=== PATIENT | female | born 1995 | race Caucasian/White ===

== ENCOUNTER → 2016-07-18 | Outpatient (CLI) | payer BC, OTHER ==
[~2016-07-18] MED LIST: SULF800T23 PO
== END | disposition home or self-care (01) ==
LOC: C.PAPS 13:57
PROVIDERS: ATTEND Physician Assistant
DX: Z01.419 Encounter for gynecological examination (general) (routine) without abnormal findings (principal)

== ENCOUNTER → 2016-07-18 | Outpatient (CLI) | payer OTHER ==
[2016-07-20 00:49] LABS: CHLAMYDIA TRACH RNA*** NOT DETECTED (NOT DETECTED); GC (NEIS GONORRHOEAE)RNA** NOT DETECTED (NOT DETECTED)
== END | disposition home or self-care (01) ==
LOC: C.LAB1850 09:03
PROVIDERS: ATTEND Obstetrics & Gynecology
DX: Z30.9 Encounter for contraceptive management, unspecified (principal)

== ENCOUNTER 2019-01-21 13:24 | Inpatient (IN) ==
[2019-01-21] MEDS ORDERED: OXYTOCIN 30 UNITS/500 ML BAG IV PRN (13:39)
--- NOTE | 2019-01-21 13:41 | History & Physical Report ---
Date of Service January 21, 2019 labor. 3cm, was 1cm earlier this am. GBS neg Assessment & Plan (1) Normal labor: History of Present Illness Primary Care Provider: NO PCP Allergies Allergy/AdvReac Type Severity Reaction Status Date / Time PCN Allergy Intermediate hives Uncoded 01/21/19 13:31 Home Medications Home Medications Medication Instructions Recorded Confirmed Type 1 tab PO DAILY 12/16/18 01/21/19 History vitamin,calcium,bjttusfk-lrxb-gbweq acid tablet Patient History Medical History Oligomenorrhea Surgical History History of oral surgery Social History Preferred Language: Arabic Communication Ability: Effective It Operations Analyst Required: No Beliefs That Will Affect Care: None marital status: Current Living Situation: Spouse Feels Safe at Home: Yes Smoking Status: Never smoker Hx Alcohol Use: No Hx Substance Use: No Physical Exam Constitutional: WD/WN, vitals as above Respiratory: normal respiratory effort, lungs clear to auscultation Cardiovascular: RRR, no murmur, no edema Genitourinary: Manual OB Exam: + cervical dilation (3) 3 cm, + cervical effacement 70% and + station -1 Results & Data Vital Signs (Past 12 Hours) Vital Signs Temp Pulse Resp BP 01/21/19 13:29 93 H 137/81 01/21/19 13:28 98.2 F 22
[2019-01-21] MEDS: LACTATED RINGER'S 1,000 ML IV PRN ×2 (14:00→17:34)
[2019-01-21] MEDS ORDERED: BUPIVACAINE 0.25% 30 ML VIAL ONE (14:02)
[2019-01-21] MEDS ORDERED: ePHEDrine sulfate 50 MG/ML AMP ONE (14:02)
[2019-01-21] MEDS ORDERED: fentaNYL citrate 100 MCG/2 ML VIAL ONE (14:03)
[2019-01-21] MEDS ORDERED: fentaNYL 2MCG/ML ROPIV 1.25MG/ML 100 ML BAG EPI ONE (14:03)
[2019-01-21 14:09] LABS: Hematocrit (blood only) 37.6 % (37-47); Hemoglobin 13.3 g/dL (12.0-16.0); Mean Corpuscular Hemoglobin 32.4 pg (25-34); Mean Corpuscular Volume 91.7 fL (80-100); Mean Platelet Volume 9.5 fL (7.4-10.4); Platelet Count 181 K/uL (130-400); RDW Coefficient of Variation 12.6 % (11.5-14.5); RDW Standard Deviation 42.4 fL (36.4-46.3); White Blood Count 12.94 K/uL (4.8-10.8)
[2019-01-21 14:22] LABS: Mean Corpuscular Hgb Conc 35.4 g/dL (32-36)
--- NOTE | 2019-01-21 14:22 | Anesthesiology Consultation ---
Date of Service January 21, 2019 Assessment & Plan Chart Review Chart Review: Acceptable Risk for Surgery, Patient NOT seen in Pre Admission Testing and Acceptable Risk for Labor Epidural Consults Requested none ASA ASA2 Proposed Anesthesia Anesthesia Type: Labor Epidural Risk / Benefits Reviewed With: PT / POA / Parent / Guardian, Accepts Plan and Informed Consent Obtained History Height/Weight Height: 5 ft 8 in Weight: 102.965 kg Allergies Allergy/AdvReac Type Severity Reaction Status Date / Time PCN Allergy Intermediate hives Uncoded 01/21/19 13:31 Medications Home Medications Medication Instructions Recorded Confirmed Last Taken 1 tab PO DAILY 12/16/18 01/21/19 01/20/19 21:00 vitamin,calcium,wzeihjqf-kpiy-vpzak acid tablet Active Medications Generic Name Dose Route Start Last Admin Trade Name Freq PRN Reason Stop Dose Admin Lactated Ringer's 1,000 mls @ 125 mls/hr 01/21/19 13:39 01/21/19 14:00 Lr IV 01/23/19 13:38 999 mls/hr .Q8H PRN Administration L&D Protocol Protocol NPO Date Last Intake of Fluids: 01/21/19 Time Last Intake of Fluids: 11:00 Date Last Intake of Solids: 01/21/19 Time Last Intake of Solids: 11:00 Past Medical History Medical History Asthma GERD (gastroesophageal reflux disease) Obesity Oligomenorrhea Exercise / Class Metabolic Activity II 4-5 Yardwork/Stairs/Walk up hill Past Surgical History Surgical History History of oral surgery Past Anesthesia History No Hx of Anesthesia Complications and No Family Hx of Anesthesia Complications History of PONV No Hx of PONV and No Hx of Motion Sickness Social History Smoking Status: Never smoker Hx Alcohol Use: No Hx Substance Use: No substance use type: does not use Physical Exam Vital Signs Last Vital Signs Temp 36.8 C 01/21/19 13:28 Pulse 79 01/21/19 14:16 Resp 22 01/21/19 13:28 BP 137/81 01/21/19 13:29 Pulse Ox 98 01/21/19 14:16 Constitutional + obese ENMT Mouth: + small oral opening; no dentition abnormality Thyromental Distance: < 3.5 Finger Breadths Mallampati Class: II Neck normal visual inspection and trachea midline; neck extension not limited Respiratory normal respiratory effort Auscultation: lungs clear to auscultation bilaterally Cardiovascular Rate/Rhythm: regular rate and regular rhythm Heart Sounds: no murmur Musculoskeletal Spine: normal cervical ROM Neurologic moves all extremities Motor/Sensory: no sensory deficit Psychiatric Orientation: alert and oriented x 3 Testing Laboratory Results 01/21/19 13:49
[2019-01-21] MEDS ORDERED: NALOXONE HCL 0.4 MG/1 ML VIAL/CARP IV PRN (14:50)
[2019-01-21] MEDS ORDERED: NALOXONE HCL 1 MG in SODIUM CHLORIDE 0.9% 1000ML 1,000 ML IV PRN (14:50)
[2019-01-21] MEDS ORDERED: PROMETHAZINE HCL 25 MG in SODIUM CHLORIDE 0.9% 50 ML IV PRN (14:50)
[2019-01-21] MEDS ORDERED: ePHEDrine sulfate 50 MG/ML AMP IV PRN (14:50)
[2019-01-21] MEDS ORDERED: fentaNYL 2MCG/ML ROPIV 1.25MG/ML 100 ML BAG EPI PRN (14:50)
[2019-01-21] MEDS ORDERED: ONDANSETRON INJ 2 MG/ML 2 ML VIAL IV PRN (14:50)
[2019-01-21] MEDS ORDERED: DiphenhydrAMINE HCL 50 MG/ML VIAL IV PRN (14:50)
[2019-01-21] MEDS ORDERED: NALBUPHINE HCL INJ 10 MG/ML AMP IV PRN (14:50)
[2019-01-22] MEDS ORDERED: ACETAMINOPHEN 325 MG TAB PO PRN (00:12)
[2019-01-22] MEDS ORDERED: SUPERCREAM 0.870% 15 GM JAR EXT PRN (00:12)
[2019-01-22] MEDS ORDERED: DIPHTHERIA/TETANUS/PERTUSSIS 0.5 ML SYR/VIAL IM ONE (00:12)
[2019-01-22] MEDS ORDERED: BENZOCAINE 20% AER SPR 82.5 GM CAN EXT PRN (00:12)
[2019-01-22] MEDS ORDERED: BISACODYL 10 MG SUPP PR PRN (00:12)
[2019-01-22] MEDS ORDERED: HYDROCORTISONE ACETATE 25 MG SUPP PR PRN (00:12)
[2019-01-22] MEDS ORDERED: OXYCODONE/ACETAMINOPHEN 5mg/325mg TAB PO PRN (00:12)
[2019-01-22] MEDS ORDERED: OXYTOCIN 30 UNITS/500 ML BAG IV PRN (00:12)
--- NOTE | 2019-01-22 00:14 | Delivery Summary ---
Vaginal Delivery Summary Date of Service January 22, 2019 Spontaneous vaginal delivery in occiput anterior patient delivered with clear f luid there was a loose nuchal cord that was easily passed over the head mouth and nares were suctioned gentle traction no excessive force live vigorous male cord clamped and cut cord gases obtained cord blood obtained placenta removed with traction second-degree tear repaired with 3-0 Vicryl sponge and instrument counts correct estimated blood loss 300 mL
[2019-01-22 00:47] LABS: Base Excess Cord Venous Blood -6.3 mEq/L (-7.7-1.9); Cord Venous Blood HCO3 18 mmol/L (18.4-26.8); Cord Venous Blood PCO2 32 mmHg (30.4-57.2); Cord Venous Blood PO2 37 mmHg (14.1-43.3); Cord Venous Blood pH 7.36 (7.20-7.44); O2 Saturation Cord Venous Bld 74.1 % (<68)
--- NOTE | 2019-01-22 00:54 | Anesthesia Procedure Note ---
Date of Service January 22, 2019 Anesthesia Post Epidural Note Vital Signs Vital Signs: Temp Pulse Resp BP Pulse Ox 36.7 C 91 H 18 137/77 90 01/22/19 00:10 01/22/19 00:40 01/22/19 00:40 01/22/19 00:40 01/22/19 00:14 Pain Intensity Lower Back: Pain Intensity: 0 Notes Mental Status: alert / awake / arousable Nausea / Vomiting: adequately controlled Pain: adequately controlled Airway Patency, RR, SpO2: stable & adequate BP & HR: stable & adequate Hydration State: stable & adequate Neuraxial Anesthesia: was administered and sensory block is resolving Anesthetic Complications: no major complications apparent Epidural: Removed without complications and With tip intact
[2019-01-22] MEDS: IBUPROFEN 600 MG TAB PO PRN ×3 (02:58→19:53)
[2019-01-22] MEDS: PRENATAL VITAMIN 1 TAB PO SCH (08:16)
[2019-01-22] MEDS: DOCUSATE SODIUM 100 MG CAP PO SCH ×2 (08:16→19:52)
--- NOTE | 2019-01-23 07:05 | Obstetrical Progress Note ---
Date of Service <Britton Rodríguez DO - Last Filed: 01/23/19 07:05> January 23, 2019 Assessment & Plan <DO Margo Traylor Last Filed: 01/23/19 07:05> (1) Normal labor: -PPD#1 -Vitals reviewed, WNL (Tmax 37) - GBS -, Blood Type A+ - Clinically stable. - Feels well today. Eating well, voiding well, ambulating well. - Pain well controlled. - Routine post-/post care - Questions answered this morning. - Discussion about D/C. Day #:: 1 Subjective <DO Margo Traylor Last Filed: 01/23/19 07:05> Ambulation: ambulating normally Voiding: no voiding problems Passing Gas:: Yes Diet Tolerance:: regular diet Feeding Type:: breast feeding Current Pain Level(1-10): 2 (improves with analgesics) Patient is a 23 PPD#1. Patient states that she is feeling well today and that her pain is well controlled. She has no other complaints at this time. Constitutional: no fever and no chills Respiratory: no cough, no dyspnea and no wheezing Cardiovascular: no chest pain, no dyspnea, no palpitations, no edema and no calf pain Breast: no breast pain Gastrointestinal: no abdominal pain, no nausea and no vomiting Genitourinary (female): no dysuria and no difficulty urinating Neurologic: no headache(s) Physical Exam <DO Margo Traylor Last Filed: 01/23/19 07:05> Constitutional WD/WN, vitals as above Respiratory normal respiratory effort, lungs clear to auscultation Cardiovascular Rate/Rhythm: regular rate and regular rhythm Heart Sounds: normal S1 and normal S2; no click, no gallop, no murmur and no cardiac rub Extremities: no calf tenderness and no edema Gastrointestinal (Abdomen) Inspection/Auscultation: abdomen normal to inspection and normal bowel sounds Percussion/Palpation: + abdomen tender (Slight tenderness to palpation of lower quadrants of abdomen) and abdomen soft Genitourinary OB Exam Abdomen: + fundal height Fundus: + firm and + relation to umbilicus (2cm below); not tender and not boggy Results & Data <DO Margo Tralyor Last Filed: 01/23/19 07:05> Vital Signs (Past 12 Hours) Vital Signs Temp Pulse Resp BP 01/22/19 23:00 37 C 73 18 102/65 01/22/19 19:35 37 C 88 18 126/84 Medications Administered Current Inpatient Medications Acetaminophen (Tylenol) 650 mg PO Q6H PRN PRN Reason: Pain/POLLARD/Fever Stop: 02/21/19 00:11 Benzocaine (Dermoplast Pain Relieving Uncertain) 1 appln EXT PRN PRN PRN Reason: Perineal Discomfort Stop: 02/21/19 00:11 Last Admin: 01/22/19 02:57 Dose: 82.5 appln Documented by: Bisacodyl (Dulcolax) 10 mg OR DAILY PRN PRN Reason: No BM on 2nd post- day Stop: 02/21/19 00:11 Bisacodyl (Dulcolax) 5 mg PO 1999 REPLACED BY [facility] Stop: 01/23/19 20:01 Cocaine HCl (Supercream 0.870%) 1 gm EXT BID PRN PRN Reason: Hemorrhoidal Inflammation Stop: 02/05/19 00:11 Last Admin: 01/22/19 02:58 Dose: 1 btl Documented by: Docusate Sodium (Colace) 100 mg PO DAILY@08,21 REPLACED BY [facility] Stop: 02/21/19 07:59 Last Admin: 01/22/19 19:52 Dose: 100 mg Documented by: Hydrocortisone (Anusol Hc) 25 mg OR BID PRN PRN Reason: Hemorrhoidal Inflammation Stop: 02/21/19 00:11 Lactated Ringer's (Lr) 1,000 mls @ 125 mls/hr IV .Q8H PRN; Protocol PRN Reason: L&D Protocol Stop: 01/23/19 13:38 Last Infusion: 01/21/19 18:51 Dose: 125 mls/hr Documented by: Oxytocin (Pitocin) 30 units in 500 mls @ 333.333 mls/hr IV .Q1H30M PRN; Protocol PRN Reason: Bleeding Control Stop: 02/21/19 00:11 Ibuprofen (Motrin) 600 mg PO Q4H PRN PRN Reason: Pain/POLLARD/Cramping/Fever Stop: 02/21/19 00:11 Last Admin: 01/22/19 19:53 Dose: 600 mg Documented by: Oxycodone/Acetaminophen (Percocet 5mg/325mg) 1 tab PO Q4H PRN PRN Reason: Pain not relieved by... Stop: 02/05/19 00:11 Prenat Multivit/Talk Show Host/Iron/Folic Ac ( Vitamin) 1 tab PO DAILY@08 [facility] Stop: 02/21/19 07:59 Last Admin: 01/22/19 08:16 Dose: 1 tab Documented by: <Karissa Castle MD, FACOG - Last Filed: 01/23/19 08:25> Co-Signing Physician Notes Resident Physician Supervision Note: I interviewed and examined the patient. Discussed with Dr. Rodríguez and agree with findings and plan as documented in the note. Any exceptions or clarifications are listed here: [None] Documented By: Karissa Castle MD, FACOG Resident Activity Tracking <Britton Rodríguez DO - Last Filed: 01/23/19 07:05> Resident Involvement: Resident Care Provided Care Provided: OB Delivery
[2019-01-23 07:34] LABS: Hematocrit (blood only) 31.6 % (37-47); Hemoglobin 10.6 g/dL (12.0-16.0); Mean Corpuscular Hemoglobin 32.1 pg (25-34); Mean Corpuscular Hgb Conc 33.5 g/dL (32-36); Mean Corpuscular Volume 95.8 fL (80-100); Mean Platelet Volume 9.2 fL (7.4-10.4); Platelet Count 145 K/uL (130-400); RDW Coefficient of Variation 13.1 % (11.5-14.5); RDW Standard Deviation 45.6 fL (36.4-46.3); White Blood Count 11.12 K/uL (4.8-10.8)
[2019-01-23] MEDS: DOCUSATE SODIUM 100 MG CAP PO SCH (07:52)
[2019-01-23] MEDS: PRENATAL VITAMIN 1 TAB PO SCH (07:52)
[2019-01-23 08:04] VITALS: BP 109/73; PULSE 76; TEMP 98.4; O2SAT 98
[2019-01-23] MEDS: IBUPROFEN 600 MG TAB PO PRN (13:10)
[2019-01-23] MEDS ORDERED: BISACODYL 5 MG TABEC PO SCH (20:00)
== END 2019-01-23 14:02 | disposition home or self-care (01) | DRG 807 ==
LOC: OPB 13:24 → 4S1 13:25 → 4S2 01-22 01:40

== ENCOUNTER 2020-12-12 05:26 | Inpatient (IN) ==
[2020-12-12] MEDS ORDERED: OXYTOCIN 30 UNITS/500 ML BAG IV PRN ×2 (06:03→10:43)
[2020-12-12 06:16] LABS: Hematocrit (blood only) 37.2 % (37-47); Hemoglobin 12.8 g/dL (12.0-16.0); Mean Corpuscular Hemoglobin 32.1 pg (25-34); Mean Corpuscular Hgb Conc 34.4 g/dL (32-36); Mean Corpuscular Volume 93.2 fL (80-100); Mean Platelet Volume 9.2 fL (7.4-10.4); Platelet Count 193 K/uL (130-400); RDW Coefficient of Variation 13.1 % (11.5-14.5); Red Blood Count 3.99 M/uL (4.2-5.4); White Blood Count 10.07 K/uL (4.8-10.8)
[2020-12-12] MEDS: LACTATED RINGER'S 1,000 ML IV PRN ×2 (07:26→08:31)
[2020-12-12] MEDS ORDERED: ePHEDrine sulfate 50 MG/ML AMP ONE (07:30)
[2020-12-12] MEDS ORDERED: SODIUM CHLORIDE 0.9% INJ 10 ML VIAL ONE (07:31)
[2020-12-12] MEDS ORDERED: fentaNYL citrate 100 MCG/2 ML VIAL ONE (07:31)
[2020-12-12] MEDS ORDERED: BUPIVACAINE 0.25% 30 ML VIAL ONE (07:31)
[2020-12-12] MEDS ORDERED: fentaNYL 2MCG/ML ROPIVACAINE 1.25MG/ML 100 ML BAG EPI ONE (07:32)
[2020-12-12] MEDS ORDERED: fentaNYL 2MCG/ML ROPIVACAINE 1.25MG/ML 100 ML BAG EPI PRN (07:58)
[2020-12-12] MEDS ORDERED: ePHEDrine sulfate 50 MG/ML AMP IV PRN (07:58)
[2020-12-12] MEDS ORDERED: NALOXONE HCL 1 MG in SODIUM CHLORIDE 0.9% 1000ML 1,000 ML IV PRN (07:58)
[2020-12-12] MEDS ORDERED: ONDANSETRON INJ 2 MG/ML 2 ML VIAL IV PRN (07:58)
[2020-12-12] MEDS ORDERED: diphenhydrAMINE 50 MG/ML VIAL IV PRN (07:58)
[2020-12-12] MEDS ORDERED: NALOXONE HCL 0.4 MG/1 ML VIAL/CARP IV PRN (07:58)
[2020-12-12] MEDS ORDERED: NALBUPHINE HCL INJ 10 MG/ML AMP IV PRN (07:58)
--- NOTE | 2020-12-12 08:01 | Anesthesiology Consultation ---
Date of Service December 12, 2020 Assessment & Plan Chart Review Chart Review: Patient NOT seen in Pre Admission Testing and Acceptable Risk for Labor Epidural Consults Requested none ASA ASA2 Proposed Anesthesia Anesthesia Type: Labor Epidural and CSE Risk / Benefits Reviewed With: PT / POA / Parent / Guardian, Accepts Plan and Informed Consent Obtained History Height/Weight Height: 5 ft 8 in Weight: 102.965 kg Allergies Allergy/AdvReac Type Severity Reaction Status Date / Time Penicillins Allergy Mild Hives Verified 12/10/20 14:39 Medications Home Medications Medication Instructions Recorded Confirmed Last Taken prenat.vits,jez,qab-ckzc-mcdam 1 tab PO DAILY 04/21/20 12/12/20 12/11/20 Active Medications Generic Name Dose Route Start Last Admin Trade Name Freq PRN Reason Stop Dose Admin Lactated Ringer's 1,000 mls @ 125 mls/hr 12/12/20 06:03 12/12/20 07:26 Lr IV 12/14/20 06:02 999 mls/hr .Q8H PRN Administration L&D Protocol Protocol NPO Date Last Intake of Fluids: 12/12/20 Time Last Intake of Fluids: 06:00 Date Last Intake of Solids: 12/11/20 Time Last Intake of Solids: 20:00 Past Medical History Medical History Asthma GERD (gastroesophageal reflux disease) Exercise / Class Metabolic Activity II 4-5 Yardwork/Stairs/Walk up hill Past Family History Family History Mother Thyroid disease Other Diabetes Dyslipidemia Heart disease Denies family history of Ovarian cancer Prostate cancer Breast cancer Colorectal cancer Past Surgical History Surgical History History of oral surgery Hx of rotator cuff surgery Past Anesthesia History No Hx of Anesthesia Complications and No Family Hx of Anesthesia Complications History of PONV No Hx of PONV and No Hx of Motion Sickness Social History Smoking Status: Never smoker Hx Alcohol Use: No Hx Substance Use: No substance use type: does not use Review of Systems no chest pain or sob Physical Exam Vital Signs Last Vital Signs Temp 36.6 C 12/12/20 06:58 Pulse 66 12/12/20 06:58 Resp 20 07/25/21 06:58 BP 120/70 12/12/20 06:58 Constitutional + obese ENMT Mouth: no TMJ abnormality Thyromental Distance: > or= 3.5 Finger Breadths Mallampati Class: II Neck normal visual inspection Respiratory normal respiratory effort Auscultation: lungs clear to auscultation bilaterally Cardiovascular Rate/Rhythm: regular rate and regular rhythm Musculoskeletal Spine: normal cervical ROM Neurologic moves all extremities Psychiatric Orientation: alert and oriented x 3 Testing Laboratory Results 12/12/20 06:10
--- NOTE | 2020-12-12 10:13 | Delivery Summary ---
Vaginal Delivery Summary Date of Service December 12, 2020 Vaginal Delivery Summary and 2nd Degree LAC Patient entered labor spontaneously requested epidural group B strep negative term Covid negative she progressed to fully dilated and delivered a baby over 1 contraction baby was born in occiput anterior position no nuchal cord fluid was clear baby delivered with gentle traction no excessive force used live vigorous female infant cord clamped and cut cord blood obtained placenta removed with gentle traction second-degree tear repaired with 3-0 Vicryl IV Pitocin started after removal of the placenta uterine tone improved sponge and instrument counts correct estimated blood loss 200 mL [facility] Vaginal Delivery Charge Vaginal Delivery Codes: 02710 global code for the antepartum, delivery, and post- Delivery Type Details: and 2nd Degree LAC
[2020-12-12] MEDS ORDERED: oxyCODONE/ACETAMINOPHEN 5mg/325mg TAB PO PRN (10:43)
[2020-12-12] MEDS ORDERED: ACETAMINOPHEN 325 MG TAB PO PRN (10:43)
[2020-12-12] MEDS ORDERED: HYDROCORTISONE ACETATE 25 MG SUPP PR PRN (10:43)
[2020-12-12] MEDS ORDERED: BENZOCAINE 20% AER SPR 82.5 GM CAN EXT PRN (10:43)
[2020-12-12] MEDS ORDERED: DIPHTHERIA/TETANUS/PERTUSSIS 0.5 ML SYR/VIAL IM ONE (10:43)
[2020-12-12] MEDS ORDERED: SUPERCREAM 0.870% 15 GM JAR EXT PRN (10:43)
--- NOTE | 2020-12-12 12:04 | Anesthesia Procedure Note ---
Date of Service December 12, 2020 Anesthesia Post Epidural Note Vital Signs Vital Signs: Temp Pulse Resp BP Pulse Ox 37 C 72 20 117/59 L 98 12/12/20 10:15 12/12/20 12:00 12/12/20 11:15 12/12/20 12:00 12/12/20 10:01 Pain Intensity Abdomen: Pain Intensity: 3 Notes Mental Status: alert / awake / arousable and participated in evaluation Nausea / Vomiting: adequately controlled Pain: adequately controlled Airway Patency, RR, SpO2: stable & adequate BP & HR: stable & adequate Hydration State: stable & adequate Neuraxial Anesthesia: was administered and sensory block is resolving Anesthetic Complications: no major complications apparent and Pt Satisfied with anesthetic care Epidural: Removed without complications and With tip intact
[2020-12-12] MEDS: DOCUSATE SODIUM 100 MG CAP PO SCH (20:17)
[2020-12-12] MEDS: IBUPROFEN 600 MG TAB PO PRN (23:10)
[2020-12-13 06:18] LABS: Hematocrit (blood only) 35.9 % (37-47); Hemoglobin 12.3 g/dL (12.0-16.0); Mean Corpuscular Hemoglobin 32.2 pg (25-34); Mean Corpuscular Hgb Conc 34.3 g/dL (32-36); Mean Platelet Volume 9.4 fL (7.4-10.4); Platelet Count 166 K/uL (130-400); RDW Coefficient of Variation 13.3 % (11.5-14.5); RDW Standard Deviation 45.5 fL (36.4-46.3); Red Blood Count 3.82 M/uL (4.2-5.4); White Blood Count 10.89 K/uL (4.8-10.8)
--- NOTE | 2020-12-13 07:08 | Obstetrical Progress Note ---
Date of Service December 13, 2020 Assessment & Plan (1) Supervision of normal intrauterine in multigravida: day #1 the patient is doing well minimal bleeding no extremity pain or tenderness she wishes to go home seems reasonable instructions reviewed Subjective Ambulation: ambulating normally Voiding: no voiding problems Passing Gas:: Yes Diet Tolerance:: regular diet Lochia:: Small Results & Data ([facility]) Vital Signs (Past 12 Hours) Vital Signs Temp Pulse Resp BP 12/13/20 03:40 97.9 F 72 18 111/71 12/12/20 23:10 97.9 F 66 18 130/85 12/12/20 20:10 98.4 F 66 18 106/69
[2020-12-13] MEDS: DOCUSATE SODIUM 100 MG CAP PO SCH (07:45)
[2020-12-13 07:52] VITALS: BP 109/75; PULSE 76; TEMP 97.3; O2SAT 95
[2020-12-13] MEDS ORDERED: PRENATAL VITAMIN 1 TAB PO SCH (08:00)
[2020-12-13] MEDS ORDERED: NON-FORMULARY MEDICATION (Prenat.Vits,Cal,Min-Iron-Folic tablet) PO SCH (09:00)
[2020-12-13] MEDS: IBUPROFEN 600 MG TAB PO PRN (09:07)
[2020-12-13] MEDS ORDERED: bisacodyL 5 MG TABEC PO SCH (20:00)
[2020-12-14] MEDS ORDERED: bisacodyL 10 MG SUPP PR PRN (09:00)
== END 2020-12-13 13:30 | disposition home or self-care (01) | DRG 807 ==
LOC: OPB 05:26 → 4S1 05:28 → 4S2 14:04